=== PATIENT | male | born 1960 | race Caucasian/White ===

== ENCOUNTER 2019-12-27 11:55 | Outpatient (CLI) | payer BC, SELFPAY ==
[2019-12-27 12:09] LABS: Basophils Absolute Auto 0.03 K/mm3 (0.00-0.10); Basophils Percent Auto 0.4 % (0.0-1.0); Hematocrit 39.4 % (40.0-54.0); Hemoglobin 13.7 g/dL (14.0-18.0); Immature Granulocyte Absolute 0.03 K/mm3 (0.00-0.00); Immature Granulocyte Percent A 0.4 % (0.0-0.0); Lymphocytes Absolute Auto 0.87 K/mm3 (1.10-4.50); Lymphocytes Percent Auto 12.8 % (18.0-42.0); Mean Corpuscular HGB Conc 34.8 g/dL (32.0-36.0); Mean Corpuscular Hemoglobin 35.7 pg (27.0-31.0); Mean Corpuscular Volume 102.6 fL (78.0-102.0); Mean Platelet Volume 9.1 fl (8.7-11.0); Monocytes Absolute Auto 0.73 K/mm3 (0.10-0.90); Monocytes Percent Auto 10.8 % (2.0-11.0); Neutrophils Absolute Auto 5.1 K/mm3 (1.7-7.2); Neutrophils Percent Auto 75.6 % (50.0-70.0); Platelet Count Result 203 K/mm3 (150-420); Red Blood Count 3.84 M/mm3 (4.70-6.10); Red Cell Distribution Width 12.6 % (11.6-14.4); White Blood Count 6.8 K/mm3 (4.8-10.8)
[2019-12-27 13:32] LABS: Alanine Aminotransferase 46 U/L (16-63); Albumin Level 3.9 g/dL (3.4-5.0); Alkaline Phosphatase 82 U/L (46-116); Anion Gap 9 mmol/L (8-16); Aspartate Amino Transferase 32 U/L (15-37); Bilirubin,Total 0.5 mg/dL (0.00-1.00); Blood Urea Nitrogen 10 mg/dL (7-18); Calcium 9.1 mg/dL (8.5-10.1); Carbon Dioxide 30 mmol/L (21-32); Chloride 95 mmol/L (98-108); Cholesterol 218 mg/dL (0-200); Estimated Glomerular Filt Rate > 60; Glucose 106 mg/dL (70-99); HDL Direct 73 mg/dL (40-60); LDL Cholesterol Calculated 133 mg/dL (<130); Magnesium 1.7 mg/dL (1.8-2.4); Osmolality Calculated 277 mOsm/kg (285-295); Potassium 3.8 mmol/L (3.5-5.1); Sodium 134 mmol/L (136-145); Thyroid Stimulating Hormone 0.95 uIU/mL (0.36-3.74); Total Protein 7.6 g/dL (6.4-8.2); Triglycerides 58 mg/dL (0-150); Vitamin B12 358 pg/mL (193-986)
[2019-12-29 11:14] LABS: Vitamin D 25 Hydroxy 21 ng/mL (30-100)
== END 2019-12-27 11:56 | disposition home or self-care (01) ==
LOC: CHSLAB 12:00
PROVIDERS: PCP Nurse Practitioner Family; Visit Provider Nurse Practitioner Family
DX: Z00.00 Encounter for general adult medical examination without abnormal findings (principal); I10 Essential (primary) hypertension; E78.5 Hyperlipidemia, unspecified; R42 Dizziness and giddiness; Z79.899 Other long term (current) drug therapy
CPT/HCPCS: 36415; 80053; 80061; 82306; 82607; 83735; 84443; 85025

== ENCOUNTER 2020-02-08 11:06 | Outpatient (CLI) | payer BC, SELFPAY ==
--- NOTE | 2020-02-08 11:08 | ECG_ITS ---
Measurements Intervals [place] Rate: 104 P: 74 [place]: 184 QRS: 85 QRSD: 104 T: 63 QT: 317 QTc: 419 Interpretive Statements SINUS TACHYCARDIA POSSIBLE RIGHT ATRIAL ENLARGEMENT DELAYED PRECORDIAL R/S TRANSITION MINIMAL Q WAVES- INFERIOR LEADS BORDERLINE ECG Electronically Signed On 02-08-2020 12:07:32 CDT by Nelson Caceres D.O.
== END 2020-02-08 11:07 | disposition home or self-care (01) ==
PROVIDERS: PCP Nurse Practitioner Family; Visit Provider Nurse Practitioner Family
DX: R00.0 Tachycardia, unspecified (principal)
CPT/HCPCS: 93005

== ENCOUNTER 2020-02-21 13:12 | Outpatient (CLI) | payer BC, SELFPAY ==
--- NOTE | 2020-02-21 13:38 | ECHO_ITS ---
Patient Info Name: Brant Brarett Age: 59 years : 1960 Gender: Male Ht: 69 in Wt: 162 lbs BSA: 1.90 m2 HR: 91 bpm BP: 103 / 65 mmHg Technical Quality: Good Exam Date: 02/21/2020 1:40 PM Exam Location: [facility] Patient Status: Outpatient Admit Date: 02/21/2020 Staff Ordering Physician: Elizabeth Martinez NP Service Transformer Repair Supervisor: Frantz Yuan RDCS, RT Attending Provider: Elizabeth Martinez NP Referring Physician: Juan CERVANTES; Exam Type: CA echo doppler color flow Study Info Indications R94.31 - Abnormal electrocardiogram ECG EKG Complete two-dimensional, color flow and Doppler transthoracic echocardiogram is performed. Summary 1. Complete two-dimensional, color flow and Doppler transthoracic echocardiogram is performed. 2. Left ventricular chamber dimension is normal. 3. Left ventricular systolic function is normal, estimated at 60-65%. 4. There is moderately increased left ventricular wall thickness. 5. The left ventricular diastolic function is grade I diastolic dysfunction. 6. E/e' 6 is not elevated. 7. Global longitudinal strain is abnormal at -13.5%. 8. There is trace tricuspid valve regurgitation. 9. No pulmonary hypertension, estimated pulmonary arterial systolic pressure is 25 mmHg. 10. The aortic root size at the sinus of Valsalva is borderline dilated at 4.0 cm.. Left Ventricle E/e' 6 is not elevated. Global longitudinal strain is abnormal at -13.5%. Left ventricular chamber dimension is normal. Left ventricular systolic function is normal, estimated at 60-65%. There is moderately increased left ventricular wall thickness. The left ventricular diastolic function is grade I diastolic dysfunction. Right Ventricle Right ventricular systolic function is normal with TAPSE at 1.9 cm.. Right ventricular chamber dimension is normal. Left Atria Left atrial chamber dimension is normal. Right Atria Right atrial chamber dimension is normal. Aortic Valve The aortic valve is trileaflet. There is no aortic valve stenosis. There is no aortic valve regurgitation. Pulmonic Valve There is no pulmonic regurgitation. Mitral Valve There is no mitral valve stenosis. There is no mitral valve regurgitation. Tricuspid Valve There is trace tricuspid valve regurgitation. No pulmonary hypertension, estimated pulmonary arterial systolic pressure is 25 mmHg. Pericardium/Pleural There is no pericardial effusion. Inferior Vena Cava Normal inferior vena cava with >50% collapse upon inspiration consistent with normal right atrial pressure, 5 mmHg. Aorta The aortic root size at the sinus of Valsalva is borderline dilated at 4.0 cm.. Left Ventricular Outflow Tract Name Value Normal LVOT 2D LVOT Diameter 2.3 cm LVOT Doppler LVOT Peak Velocity 74 cm/s LVOT Peak Gradient 2 mmHg LVOT Mean Gradient 1 mmHg LVOT VTI 14 cm LVOT VTI/AV VTI Ratio 0.8 LVOT Stroke Volume 57 ml Mitral Valve
== END 2020-02-21 13:13 | disposition home or self-care (01) ==
LOC: CHSIMG 13:15
PROVIDERS: PCP Nurse Practitioner Family; Visit Provider Nurse Practitioner Family
DX: R94.31 Abnormal electrocardiogram [ECG] [EKG] (principal)
CPT/HCPCS: 93306

== ENCOUNTER 2020-04-05 08:15 | Outpatient (CLI) | payer BC, SELFPAY ==
[2020-04-12 11:16] LABS: Vitamin D 25 Hydroxy 24 ng/mL (30-100)
== END 2020-04-05 08:16 | disposition home or self-care (01) ==
LOC: CHSLAB 08:16
PROVIDERS: PCP Nurse Practitioner Family; Visit Provider Nurse Practitioner Family
DX: Z79.899 Other long term (current) drug therapy (principal)
CPT/HCPCS: 36415; 82306

== ENCOUNTER 2020-04-25 08:48 | Outpatient (CLI) | payer BC, SELFPAY ==
--- NOTE | 2020-05-01 10:37 | WPDHOLTEREM ---
Holter/Event Monitor Holter/Event Monitor Date of procedure: 04/25/20 Procedure Type: 48 hour holter monitor Indications: Dizziness Conclusion: 1. 48 hour holter monitor on 04/25/20. 2. Underlying rhythm is sinus rhythm. HR range 69-132; average HR 87 bpm. 3. There are 13 premature supraventricular complexes. No supraventricular tachycardia. 4. There are 50 premature ventricular complexes. No ventricular tachycardia. 5. No sinoatrial or atrioventricular blocks. No significant pauses greater than 2 seconds. 6. Patient reports symptoms of lightheadedness, nausea/vomiting, headache which demonstrate sinus rhythm, HR range 76-100 bpm.
== END 2020-04-25 08:49 | disposition home or self-care (01) ==
PROVIDERS: PCP Nurse Practitioner Family; Visit Provider Nurse Practitioner Family
DX: R42 Dizziness and giddiness (principal)
CPT/HCPCS: 93225; 93226

== ENCOUNTER 2021-05-10 10:15 | Outpatient (CLI) | payer BC, SELFPAY ==
[2021-05-10 10:58] LABS: Hematocrit 42.8 % (40.0-54.0); Hemoglobin 15.9 g/dL (14.0-18.0); Immature Platelet Fraction Pct 24.2 % (1.0-7.0); Mean Corpuscular HGB Conc 37.1 g/dL (32.0-36.0); Mean Corpuscular Hemoglobin 37.1 pg (27.0-31.0); Platelet Count Result 80 K/mm3 (150-420); Red Blood Count 4.28 M/mm3 (4.70-6.10); Red Cell Distribution Width 12.8 % (11.6-14.4); White Blood Count 5.5 K/mm3 (4.8-10.8)
[2021-05-10 11:34] LABS: Band Neutrophils Percent 0 % (0-6); Basophils Percent Manual 0 % (0-1); Eosinophils Absolute Manual 0.05 K/mm3 (0.02-0.5); Eosinophils Percent Manual 1 % (1-6); Lymphocytes Absolute Manual 1.21 K/mm3 (1.1-4.5); Lymphocytes Percent Manual 22 % (18-44); Monocytes Absolute Manual 0.55 K/mm3 (0.1-0.90); Monocytes Percent Manual 10 % (3-9); Neutrophils Absolute Manual 3.68 K/mm3 (1.3-6.7); Neutrophils Percent Manual 67 % (46-73); Total Cells Counted 100
[2021-05-10 11:35] LABS: Alanine Aminotransferase 72 U/L (16-63); Albumin Level 3.2 g/dL (3.4-5.0); Alkaline Phosphatase 138 U/L (46-116); Anion Gap 13 mmol/L (8-16); Aspartate Amino Transferase 109 U/L (15-37); Bilirubin,Total 3.1 mg/dL (0.00-1.00); Blood Urea Nitrogen 8 mg/dL (7-18); Calcium 8.9 mg/dL (8.5-10.1); Carbon Dioxide 32 mmol/L (21-32); Chloride 82 mmol/L (98-108); Cholesterol 209 mg/dL (0-200); Estimated Glomerular Filt Rate > 60; Glucose 165 mg/dL (70-99); HDL Direct 24 mg/dL (40-60); LDL Cholesterol Calculated 148 mg/dL (<130); Large Platelets Present; Osmolality Calculated 266 mOsm/kg (285-295); Platelet Estimate Decreased (Adequate); Sodium 127 mmol/L (136-145); Total Protein 7.1 g/dL (6.4-8.2); Triglycerides 183 mg/dL (0-150)
[2021-05-10 11:46] LABS: Potassium 2.4 mmol/L (3.5-5.1)
[2021-05-14 02:20] LABS: Vitamin D 25 Hydroxy 14 ng/mL (30-100)
== END 2021-05-10 10:16 | disposition home or self-care (01) ==
LOC: CHSLAB 10:18
PROVIDERS: PCP Nurse Practitioner Family; Visit Provider Nurse Practitioner Family
DX: E55.9 Vitamin D deficiency, unspecified (principal); I10 Essential (primary) hypertension; E78.5 Hyperlipidemia, unspecified
CPT/HCPCS: 36415; 80053; 80061; 82306; 85025; 85055

== ENCOUNTER 2021-05-10 14:44 | Inpatient (IN) | payer BC, SELFPAY ==
[2021-05-10] VITALS (8 sets, daily range): BP systolic 133–149; BP diastolic 78–89; PULSE 62–69; RESP 16–28; TEMP 35.6–36.9; O2SAT 94–99; BMI 21.9
--- NOTE | ~2021-05-10 | MR_ITS ---
EXAMINATION: MR brain/brain stem wo con DATE: 05/15/2021 12:26 INDICATION: Altered mental status. Stroke. TECHNIQUE: Magnetic resonance imaging (MRI) of the brain and brainstem was performed without intraven ous contrast. Sequences included sagittal and axial T1-weighted FSE, axial diffusion-weighted FS EPI, axial T2*-weighted GRE, axial T2-weighted FLAIR Propeller, and axial T2-weighted Propeller. Apparent diffusion coefficient (ADC) maps were created. COMPARISON: Head CT 05/10/2021 FINDINGS: There is an old infarct in right frontoparietal region. There is no intracranial hemorrhage , acute infarction, or abnormal intracranial mass lesion. There are scattered areas of nonspecific in creased T2-weighted signal intensity in the cerebral white matter, which is within normal limits for the patient's age. The ventricles are normal in size. Right maxillary sinus is small and nearly compl etely opacified. The orbits are normal. There is a trace left mastoid effusion. IMPRESSION: 1. 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 2. Chronic right maxillary sinusitis. Reviewed, dictated and finalized at location B. LOPMENT COORDINATOR
--- NOTE | ~2021-05-10 | MR_ITS ---
EXAMINATION: MRA brain wo con DATE: 05/12/2021 12:22 INDICATION: Cortical infarct in right frontoparietal region. Seizure. TECHNIQUE: Magnetic resonance angiography (MRA) of the brain was performed without intravenous contra st with T1-weighted SPGR by the 3D [id number] technique. Maximum intensity projection 3D-reconstr uctions were obtained. COMPARISON: Head CT 05/10/2021 FINDINGS: Right vertebral artery is dominant. There is no significant stenosis of basilar artery or the posteri or cerebral arteries. There is no significant stenosis of the intracranial internal carotid arteries or anterior or middle cerebral arteries. Anterior communicating artery is normal. Posterior communica ting arteries are not identified. There is no aneurysm. IMPRESSION: 1. No aneurysm or significant intracranial arterial stenosis. Reviewed, dictated and finalized at location A. WEB DEVELOPER
--- NOTE | ~2021-05-10 | XR_ITS ---
EXAMINATION: XR chest 2V EXAM DATE: 05/10/2021 16:09 INDICATION: shortness of breath and weakness. TECHNIQUE: Frontal and lateral projections of the chest obtained and reviewed. There is no prior kyleigh dy for comparison. FINDINGS: The lungs are clear. There are no pleural effusions. The cardiomediastinal silhouette is within normal limits. There is no pneumothorax suspected. The bones and soft tissues are unremarkab le. IMPRESSION: No acute cardiopulmonary findings. Reviewed, dictated and finalized at location A. RINARY MILK SPECIALIST
--- NOTE | ~2021-05-10 | CT_ITS ---
EXAMINATION: CT brain wo con DATE: 05/10/2021 16:09 INDICATION: New onset multiple seizures within the last 2 days. TECHNIQUE: Computed tomography (CT) of the head was performed without intravenous contrast. Sagittal and coronal reconstructions were performed. The mA was adjusted according to patient size. Iterative reconstruction technique was employed. The dose-length product was 605.33 mGy-cm. COMPARISON: None FINDINGS: Small region of cortical encephalomalacia consistent with 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 No acute intracranial hemorrhage, acute infarction or abnormal extra axial fluid collection. Ventricles are normal and symmetric. No mass/mass effect. Complete opacification of the visualized p ortion of the right maxillary sinus with thickened sclerotic rios suggesting chronic sinusitis. Asa tional mucosal thickening in a few of the bilateral ethmoid sinuses. The orbits and mastoid air cells are normal. Mild atherosclerotic calcification at the bilateral carotid siphons. IMPRESSION: 1. No acute intracranial process. 2. 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 3. Chronic right maxillary sinusitis. Reviewed, dictated and finalized at location B. GED CARE PROVIDER
--- NOTE | 2021-05-10 14:57 | ECG_ITS ---
Measurements Intervals [place] Rate: 66 P: 66 [place]: 170 QRS: 79 QRSD: 119 T: 77 QT: 450 QTc: 474 Interpretive Statements SINUS RHYTHM INTRAVENTRICULAR CONDUCTION DELAY DELAYED PRECORDIAL R/S TRANSITION BORDERLINE ST-T WAVE ABNORMALITY- HIGH LATERAL LEADS BASELINE ARTIFACT- I, II, III, AVR, AVL, AVF, V1-V6 BORDERLINE ECG Electronically Signed On 05-10-2021 15:28:21 SKEIN WINDER by Nelson Caceres D.O.
[2021-05-10] MEDS: IPRATROPIUM 0.5 MG/ALBUTEROL SULFATE 2.5 MG AMPUL.NEB 3 ML INHALATION (15:21)
[2021-05-10 15:33] LABS: Basophils Absolute Auto 0.03 K/mm3 (0.00-0.10); Basophils Percent Auto 0.4 % (0.0-1.0); Eosinophils Absolute Auto 0.01 K/mm3 (0.02-0.50); Eosinophils Percent Auto 0.1 % (1.0-6.0); Hemoglobin 14.4 g/dL (14.0-18.0); Immature Granulocyte Absolute 0.05 K/mm3 (0.00-0.00); Immature Granulocyte Percent A 0.6 % (0.0-0.0); Immature Platelet Fraction Pct 23.2 % (1.0-7.0); Lymphocytes Absolute Auto 1.36 K/mm3 (1.10-4.50); Lymphocytes Percent Auto 17.4 % (18.0-42.0); Mean Corpuscular HGB Conc 36.9 g/dL (32.0-36.0); Mean Corpuscular Hemoglobin 37.2 pg (27.0-31.0); Mean Corpuscular Volume 100.8 fL (78.0-102.0); Monocytes Absolute Auto 0.83 K/mm3 (0.10-0.90); Monocytes Percent Auto 10.6 % (2.0-11.0); Neutrophils Absolute Auto 5.5 K/mm3 (1.7-7.2); Neutrophils Percent Auto 70.9 % (50.0-70.0); Nucleated Red Blood Cells Absolute Auto 0.03 K/mm3 (0.00-0.00); Nucleated Red Blood Cells Perc 0.4 % (0-0.0); Platelet Count Result 74 K/mm3 (150-420); Red Blood Count 3.87 M/mm3 (4.70-6.10); Red Cell Distribution Width 12.8 % (11.6-14.4); White Blood Count 7.8 K/mm3 (4.8-10.8)
[2021-05-10] MEDS: KCL 20 MEQ/SW 100 ML 100 ML 50 MEQ IVPB (15:40)
[2021-05-10] MEDS: methylPREDNISolone SOD SUCC 125 MG VIAL IV PUSH (15:41)
[2021-05-10] MEDS: SODIUM CHLORIDE 0.9% IV 1,000 ML 999 ML IV CONT (15:41)
[2021-05-10 15:46] LABS: Magnesium 1.4 mg/dL (1.8-2.4)
[2021-05-10 15:54] LABS: Lactic Acid Reflex 2.9 mmol/L (0.4-2.0)
--- NOTE | 2021-05-10 16:25 | ED.GENADULT ---
HPI - General Adult General Chief complaint: Recheck/Abnormal Lab/Rx Stated complaint: bad labs Source: patient and family Mode of arrival: ambulatory Limitations: no limitations History of Present Illness HPI narrative: This is a 60 year gentleman sent to the ER by his primary care, with labs that drawn earlier today showing a sodium level of 127 with a potassium of 2.4. The patient currently is not exhibiting any symptoms of chest pain or shortness of breath there is no abdominal pain no nausea vomiting no fever chills. The patient has a tobacco history and has a history of hypertension hyperlipidemia and depression. According to the patient and his had an episode of seizure activity that lasted about a minute yesterday afternoon and did lose bowel and bladder function did not bite his tongue currently there is no headaches no blurry vision no neurological deficits. Onset (ago): day(s) Related Data Home Medications Medication Instructions Recorded Confirmed atorvastatin 40 mg tablet 40 mg PO DAILY 12/27/19 11/15/20 sertraline 50 mg tablet 50 mg PO DAILY 09/14/20 11/15/20 Allergies Allergy/AdvReac Type Severity Reaction Status Date / Time Penicillins Allergy Intermediate Rash Verified 01/31/21 14:11 Review of Systems Review of Systems: All systems reviewed & are unremarkable except as noted in HPI and below PMFSH Past Medical History Medical History (Updated 05/10/21 @ 16:31 by Chepe Seaman MD) Anxiety HTN (hypertension) Hyperlipidemia Nicotine dependence, cigarettes, uncomplicated Surgical History Surgical History Hx of tonsillectomy Age 11 Family History Family History Father Hypertension Social History Social History Smoking packs per day: 0.5 Smoking cigarettes per day: 10.0 Years smoked: 20 Smoking pack-years: 10.00 Smoking status: Never smoker Tobacco type: cigarettes Alcohol intake: never Substance use: never Exam Const: General: healthy appearing, no acute distress and alert Orientation/consciousness: patient oriented x3 HENMT: Head: normal to inspection Eyes: Conjunctivae: conjunctivae normal Pupils: Equal, round and reactive pupils present Direct Ophthalmoscopy: no photophobia Neck: Neck: normal visual inspection, no lymphadenopathy and no meningeal signs Chest: Chest palpation & inspection: normal inspection of the chest Resp: Effort & Inspection: normal respiratory effort Auscultation: clear to auscultation bilaterally Cardio: Rate: regular rate Rhythm: regular rhythm GI: GI Palp: Yes Soft to palpation Percussion: Yes normal to percussion : Testes: Testes normal Urinary Catheter: Urinary Catheter: patent and draining Back/Spine/Pelvis: Back: no CVA tenderness Skin: General skin exam: normal color Rashes: no rashes Neuro: General: patient oriented x3, moves all extremities, no meningeal signs, no focal motor deficits and CN's II-XI intact bilaterally Extrem: General: normal to inspection and no pedal edema Psych: Appearance: grossly normal Mental Status: mental status grossly normal Affect: normal affect Course Course Emergency Course: CT scan chest x-ray reviewed with patient and family, the patient had a low potassium of 2.4 and a sodium of 127, magnesium level was 1.4, patient received potassium rider along with IV fluids. Vital Signs Vital signs: Vital Signs Temperature 35.6 C L 05/10/21 15:05 Pulse Rate 65 05/10/21 15:05 Respiratory Rate 16 05/10/21 15:05 Blood Pressure 133/84 05/10/21 15:05 Pulse Oximetry 98 05/10/21 15:05 Temperature 35.6 C L 05/10/21 15:05 Pulse Rate 62 05/10/21 15:38 Respiratory Rate 28 H 05/10/21 15:38 Blood Pressure 133/84 05/10/21 15:05 Pulse Oximetry 99 05/10/21 15:38 Medical Decision Maria Elena
--- NOTE | 2021-05-10 18:11 | PM.IMHP ---
H&P: HPI History of Present Illness Date/Time: 05/10/21 18:11 Brant Barrett is a 60 year old male who is admitted under Observation for Electrolyte Imbalance: Na 127, K 2.4, Cl 82, Mag 1.4, Lactic Acidosis 2.9, N/V/D, and Seizure Activity. Pt states he has been having N/V/D off and on for a few months with it becoming worse over last 2-3 days. He admits to some leg/foot cramping, and tremors. The tremors have been off and on but increasing over the last 6 months. Pt describes them as intention tremors. The seizure activity is described as 3 episodes of hallucinations where he thought he was talking to someone and then his gets him to respond and he realizes that what he had just experienced was not real. They were of short duration maybe 1-2 minutes but he does not recall them but was told what had happened by his . Pt denies any loss of bowel or bladder function, no CP, SOB, fever, or chills. Chief Complaint: N/V/D, Seizure Review of Systems Review of Systems: All systems reviewed & are unremarkable except as noted in HPI and below PMFSH Past Medical History Medical History Anxiety HTN (hypertension) Hyperlipidemia Nicotine dependence, cigarettes, uncomplicated Surgical History Surgical History Hx of tonsillectomy Age 11 Family History Family History Father Hypertension Social History Social History Smoking packs per day: 0.5 Smoking cigarettes per day: 10.0 Years smoked: 20 Smoking pack-years: 10.00 Smoking status: Current every day smoker Tobacco type: cigarettes Second hand tobacco smoke exposure: Yes Alcohol intake: current Drinks per week: 3 Substance use: never Substance use type: does not use Spiritual care concerns: No Meds Home Medications and Allergies Home Medications Medication Instructions Recorded Confirmed Type atorvastatin 40 mg tablet 40 mg PO DAILY 12/27/19 11/15/20 History cholecalciferol (vitamin D3) 1,250 1,250 mcg PO WEEKLY #8 cap 04/24/20 11/15/20 Rx mcg (50,000 unit) capsule azelastine 137 mcg (0.1 %) nasal 1 spray INTRANASAL Q12H #30 ml 05/24/20 11/15/20 Rx spray aerosol meclizine 25 mg tablet 25 mg PO BID PRN #30 tablet 07/20/20 11/15/20 Rx fluticasone propionate 50 1 spray NASAL DAILY PRN #9.9 ml 07/31/20 11/15/20 Rx mcg/actuation nasal spray,suspension sertraline 50 mg tablet 50 mg PO DAILY 09/14/20 11/15/20 History hydrocortisone acetate 25 mg 25 mg RECTAL BID PRN #12 ea 11/15/20 11/15/20 Rx rectal suppository propranolol 40 mg tablet See Rx Instructions .ROUTE 01/03/21 Rx .COMPLEX #60 tablet lisinopril 10 mg tablet See Rx Instructions .ROUTE 03/06/21 Rx .COMPLEX #90 tablet potassium chloride 20 mEq 20 meq PO TID #30 tablet 05/10/21 Rx tablet,extended release sodium chloride 1 gram tablet 1,000 mg PO BID #14 tablet 05/10/21 Rx Allergies Allergy/AdvReac Type Severity Reaction Status Date / Time Penicillins Allergy Intermediate Rash Verified 01/31/21 14:11 Vital Signs Vital Signs - 24 hr 05/10/21 15:05 05/10/21 15:20 05/10/21 15:38 Temperature 96.1 F L Pulse Rate 65 62 62 Respiratory Rate 16 28 H 28 H Blood Pressure 133/84 Pulse Oximetry 98 99 99 05/10/21 16:47 Temperature 98.4 F Pulse Rate 65 Respiratory Rate 18 Blood Pressure 149/85 H Pulse Oximetry 94 Exam Const: General: cooperative, no acute distress, well developed, alert, awake, Physically active and tired appearing Nutritional Appearance: average body habitus HENMT: Head: normal to inspection, normocephalic and atraumatic Ears: hearing grossly normal bilaterally Face and sinus: normal facial exam Eyes: Alignment and Position: alignment normal EOM: EOM abnormal and Nystagmus present Direct Ophth
[2021-05-10 18:28] LABS: Reflex Lactic Acid Yes or No Add Lactic
--- NOTE | 2021-05-10 18:43 | ADMGEN ---
This patient, Brant Barrett, was admitted to 2nd Floor Room 207-1. Patient/family oriented to hospital policies and general routines including ID bracelet, bed and alarms, visiting hours, pain management, procedures, bathroom and other care routines, personal items, smoking policy, room service/diet, and visiting hours. Information on how to activate the Rapid Response Team has been discussed. pt has athletic pants in bag, jeans, shoes, socks, shirt, glasses Patient/Family are encouraged to report perceived risks to care and to ask questions if they do not understand what they are told or what they should do.
[2021-05-10] MEDS: MAGNESIUM SULF 2 GM/WATER 50ML 2 GM/50 ML BAG IVPB (19:17)
[2021-05-10] MEDS: SODIUM CHLORIDE 0.9% IV 1,000 ML 100 ML IV CONT (19:18)
[2021-05-10] MEDS: POTASSIUM CHLORIDE 20 MEQ TABLET PO (19:18)
[2021-05-10] MEDS: MELATONIN 5 MG TABLET 10 MG PO (21:15)
[2021-05-10] MEDS: methylPREDNISolone SOD SUCC 40 MG VIAL IV PUSH (21:15)
[2021-05-10] MEDS: chlordiazePOXIDE (*CRX) 10 MG CAPSULE PO (21:16)
[2021-05-11] VITALS (15 sets, daily range): BP systolic 128–161; BP diastolic 74–106; PULSE 59–88; RESP 18–22; TEMP 36.4–36.7; O2SAT 96–100
--- NOTE | 2021-05-11 02:31 | PC.NURSE ---
Patient sleeping at this time. Bed rails up x 4. Bed exit alarm on. Bed in low position for safety.
[2021-05-11] MEDS: methylPREDNISolone SOD SUCC 40 MG VIAL IV PUSH ×4 (04:06→21:29)
--- NOTE | 2021-05-11 05:07 | PC.NURSE ---
Patient sleeping comfortably. Requires frequent reminders not to get up on his own, and reminders not to bend his arm for long periods. Bed in low position for safety. Denies needs at this time.
[2021-05-11 05:23] LABS: Basophils Absolute Auto 0.01 K/mm3 (0.00-0.10); Basophils Percent Auto 0.2 % (0.0-1.0); Hemoglobin 13.6 g/dL (14.0-18.0); Immature Granulocyte Absolute 0.02 K/mm3 (0.00-0.00); Immature Granulocyte Percent A 0.5 % (0.0-0.0); Immature Platelet Fraction Pct 20.6 % (1.0-7.0); Mean Corpuscular HGB Conc 35.8 g/dL (32.0-36.0); Mean Corpuscular Hemoglobin 36.8 pg (27.0-31.0); Mean Corpuscular Volume 102.7 fL (78.0-102.0); Mean Platelet Volume 12.9 fl (8.7-11.0); Monocytes Absolute Auto 0.54 K/mm3 (0.10-0.90); Monocytes Percent Auto 13.1 % (2.0-11.0); Neutrophils Absolute Auto 2.9 K/mm3 (1.7-7.2); Neutrophils Percent Auto 69.2 % (50.0-70.0); Nucleated Red Blood Cells Absolute Auto 0.02 K/mm3 (0.00-0.00); Nucleated Red Blood Cells Perc 0.5 % (0-0.0); Platelet Count Result 70 K/mm3 (150-420); Red Cell Distribution Width 13.1 % (11.6-14.4); White Blood Count 4.1 K/mm3 (4.8-10.8)
[2021-05-11 05:41] LABS: Alanine Aminotransferase 81 U/L (16-63); Albumin Level 2.7 g/dL (3.4-5.0); Alkaline Phosphatase 109 U/L (46-116); Anion Gap 10 mmol/L (8-16); Aspartate Amino Transferase 155 U/L (15-37); Bilirubin,Total 2.4 mg/dL (0.00-1.00); Blood Urea Nitrogen 7 mg/dL (7-18); Carbon Dioxide 33 mmol/L (21-32); Chloride 92 mmol/L (98-108); Estimated CRCL calculation 89 ml/min; Estimated Glomerular Filt Rate > 60; Glucose 159 mg/dL (70-99); Magnesium 1.9 mg/dL (1.8-2.4); Osmolality Calculated 281 mOsm/kg (285-295); Potassium 2.6 mmol/L (3.5-5.1); Sodium 135 mmol/L (136-145); Total Protein 6.5 g/dL (6.4-8.2)
[2021-05-11] MEDS: SODIUM CHLORIDE 0.9% IV 1,000 ML 100 ML IV CONT ×2 (06:09→16:27)
--- NOTE | 2021-05-11 06:14 | PC.NURSE ---
Patient resting in bed. New bag of IV fluids hanging. Denies needs. Sat up on side of bed to use urinal. Bed rails up x 4. Bed exit alarm on. Bed in low position for safety.
[2021-05-11] MEDS: THIAMINE HCL INJ 100 MG, FOLIC ACID 1 MG, MULTIVITAMINS-12 INJ 10 ML, MAGNESIUM SULFATE... IV CONT (09:16)
[2021-05-11] MEDS: ENOXAPARIN 40 MG/0.4 ML SYRINGE SUB-Q (09:18)
[2021-05-11] MEDS: chlordiazePOXIDE (*CRX) 10 MG CAPSULE PO ×2 (09:18→21:29)
[2021-05-11] MEDS: CLOPIDOGREL BISULFATE 75 MG TABLET PO (09:18)
[2021-05-11] MEDS: NICOTINE (*PBKC) 21 MG PATCH 1 PATCH TRANSDERM (09:18)
[2021-05-11] MEDS: POTASSIUM CHLORIDE 20 MEQ TABLET PO ×2 (09:18→16:28)
[2021-05-11] MEDS: POTASSIUM CHLORIDE 20 MEQ TABLET 40 MEQ PO (10:34)
[2021-05-11] MEDS: KCL 20 MEQ/SW 100 ML 100 ML 50 MEQ IVPB (10:37)
[2021-05-11] MEDS: lisinopriL 10 MG TABLET PO (13:48)
[2021-05-11] MEDS: SERTRALINE HCL 50 MG TABLET PO (13:48)
[2021-05-11] MEDS: PROPRANOLOL HCL 20 MG TABLET PO ×2 (13:48→21:28)
[2021-05-11 14:25] LABS: Lactic Acid Reflex 2.8 mmol/L (0.4-2.0)
--- NOTE | 2021-05-11 14:31 | PM.IMPN ---
Progress Note: A&P Assessment and Plan (1) Alcohol withdrawal: Code(s): F10.239 - Alcohol dependence with withdrawal, unspecified Status: Acute Assessment and Plan: Started on CIWA with Ativan Q4R PRN, Tremors improved today, Pt is not requesting AMA, Pt is compliant (2) Thrombocytopenia: Code(s): D69.6 - Thrombocytopenia, unspecified Status: Acute Assessment and Plan: Plt 80, 74, 70, Pt is on Eliquis, Monitor to maintain > 50 for Anticoagulation and < 20 for transfusion. (3) Acute hyponatremia: Code(s): E87.1 - Hypo-osmolality and hyponatremia Status: Acute Assessment and Plan: IVF as noted, monitor BMP (4) Acute hypokalemia: Code(s): E87.6 - Hypokalemia Status: Acute Assessment and Plan: K rider in ER, Potassium 20 BID, monitor BMP, Mag also low, (5) Hypomagnesemia: Code(s): E83.42 - Hypomagnesemia Status: Acute Assessment and Plan: Mag rider in ER will recheck in AM (6) Seizure: Code(s): R56.9 - Unspecified convulsions Status: Acute Assessment and Plan: As noted in HPI, will monitor for seizures, seizure precautions, electrolyte imbalance, new onset, no changes in medications or OTC supplements, see Head CT report: FINDINGS: Small region of cortical encephalomalacia consistent with 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 No acute intracranial hemorrhage, acute infarction or abnormal extra axial fluid collection. Ventricles are normal and symmetric. No mass/mass effect. Complete opacification of the visualized portion of the right maxillary sinus with thickened sclerotic rios suggesting chronic sinusitis. Additional mucosal thickening in a few of the bilateral ethmoid sinuses. The orbits and mastoid air cells are normal. Mild atherosclerotic calcification at the bilateral carotid siphons. IMPRESSION: 1. No acute intracranial process. 2. 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 3. Chronic right maxillary sinusitis. MRI Brain ordered: will be available on Friday05/12/2021. (7) Vomiting and diarrhea: Code(s): R11.10 - Vomiting, unspecified; R19.7 - Diarrhea, unspecified Status: Acute Assessment and Plan: IVF 1 L bolus in ER with 100 ml/h continuation on floor, likely cause for electrolyte imbalance. (8) HTN (hypertension): Code(s): I10 - Essential (primary) hypertension Status: Acute Assessment and Plan: Will restart home medications in AM when a verified list is available otherwise monitor, make adjustments as needed. Time Spent With Patient Time with patient: 15 - 25 minutes Subjective Date/time seen: 05/11/21 14:31 Pt in bed and a little restless. He thought he was at other peoples home and that his was in the hospital at some point. His tremors have decreased a little. He is difficult to calm at times for the staff. Will adjust his CIWA medications. Pt denies any CP, breathing difficulties, abdominal pain, or any other issues. Review of Systems Review of Systems: All systems reviewed & are unremarkable except as noted in HPI and below Exam Const: General: comfortable, well developed, alert, awake, Physically active, confusion and intoxicated appearing Nutritional Appearance: average body habitus Resp: Effort & Inspection: normal respiratory effort Auscultation: clear to auscultation bilaterally Cardio: Rate: regular rate Heart sounds: S1 normal heart sound present and S2 normal heart sound present GI: GI Palp: Yes Soft to palpation, No Tenderness to palpation present (GI) and No Guarding due to palpation present (GI) Auscultation: normal bowel sounds Skin: General skin exam: normal color and dry skin Neuro: General: oriented to person, moves all extremities and confusion Cranial nerves: Yes CN's II-XII intact bilaterally (grossly intact), Yes facial symmetry and Yes Normal hearing present Speech: Abnormal speech present s
[2021-05-11 17:09] LABS: Reflex Lactic Acid Yes or No Add Lactic
[2021-05-11 18:31] LABS: Lactic Acid 1.5 mmol/L (0.4-2.0)
--- NOTE | 2021-05-11 19:00 | PC.NURSE ---
Patient assisted to/from bedside commode with SBA. Patient confused, thinks he's @ home and doesn't understand why he can't go to the kitchen. Attempts to re-orient patient have failed. NS infusing to site in LFA without difficulty. Call light in reach.
--- NOTE | 2021-05-11 20:20 | PC.NURSE ---
Patient continuously getting up unassisted, setting bed alarm off, which gets him agitated. Patient thinks he's @ home and wants to go to his bedroom or to his kitchen and gets angry @ nurses when they try to re-orient him. Patient can't understand why the bed alarm sounds every time he starts to get up. Patient pulled 2 wires of telemetry off and story writer put them back on but patient wasn't happy about it.
[2021-05-11] MEDS: LORazepam INJ (*CRX) 2 MG/ML VIAL 0.5 MG IV PUSH (21:32)
[2021-05-11] MEDS: MELATONIN 5 MG TABLET 10 MG PO (21:33)
--- NOTE | 2021-05-11 21:35 | PC.NURSE ---
Patient continually getting up without assistance. Foreign Policy Officer entered room one of the times and patient was standing next to the bed with IV tubing stretched as far as it would go and patient was going to go use the bathroom. Foreign Policy Officer grabbed the bedside commode and pulled it closer for patient and patient refused to sit on commode, wanted to stand to urinate, which patient did, but some of the urine ended up on the floor instead of in the commode. Patient leaned to the right and fell onto the bed and laughed. Foreign Policy Officer explained again why patient had to have someone with him to get up and explained why bed alarm is being used, using his falling onto the bed as an example. Patient getting more and more agitated the more times he gets up and the bed alarm sounds. Patient will lie down and within a minute or two he's getting up again. Anuel Ayoub VP BUSINESS DEVELOPMENT stayed in patient's room talking to him to try to calm him while nurse got patient's medicines ready. Patient did take his po meds without trouble and patient was given PRN Ativan also.
[2021-05-11] MEDS: AZELASTINE HCL NASAL 0.1% 137 MCG/SPR 30 ML BTL 1 SPRAY NASAL (21:41)
--- NOTE | 2021-05-11 22:30 | PC.NURSE ---
Patient still continually getting up unassisted and setting off bed alarm to alert nurses, which in turn agitates patient. Patient wants to go home, thinks someone is in the steele that nurses don't want him to see and says that's why nurses won't let him go out there. Patient's gait remains unsteady when he stands. Patient will agree with nurses when he is told he is in [facility], but then patient will still want to go to his kitchen or bedroom. All attempts to re-orient patient fail. Patient still agitated after receiving the PRN Ativan. Behaviors continue.
--- NOTE | 2021-05-11 23:36 | PC.NURSE ---
Dr. Simpson notified of pt's agitated behavior; New orders received and noted.
[2021-05-11] MEDS: LORazepam INJ (*CRX) 2 MG/ML VIAL 1 MG IV PUSH (23:53)
[2021-05-12] VITALS (9 sets, daily range): BP systolic 137–170; BP diastolic 68–107; PULSE 60–90; RESP 18–20; TEMP 36.2–37; O2SAT 95–100
--- NOTE | 2021-05-12 01:00 | PC.NURSE ---
here, patient remains agitated, confused and uncooperative. Requires three nurses to return to bed after using BSC.
[2021-05-12] MEDS: SODIUM CHLORIDE 0.9% IV 1,000 ML 100 ML IV CONT ×3 (01:06→22:54)
--- NOTE | 2021-05-12 03:00 | PC.NURSE ---
Patient remains confused with periods of agitation, hallucinations(ie seeing paintings of daisies on rios, seeing small robot children and other people in room.) Melo, , in room, and patients having periods of calm, resting for less than 30 minutes, followed by agitation, requiring 2 nurses to prevent falls/injuries.
--- NOTE | 2021-05-12 04:15 | PC.NURSE ---
Dr. Simpson notified of pt's agitated behavior; New orders received and noted.
[2021-05-12] MEDS: methylPREDNISolone SOD SUCC 40 MG VIAL IV PUSH ×4 (04:20→21:48)
[2021-05-12] MEDS: HALOPERIDOL LACTATE 5 MG/ML VIAL 1 MG IM (04:25)
--- NOTE | 2021-05-12 04:30 | PC.NURSE ---
Continues to have periods of agitation, sleeping at intervals, at bedside.
--- NOTE | 2021-05-12 05:00 | PC.NURSE ---
Sleeping, no signs of distress, caregiver leaving for home. Bed alarm on.
[2021-05-12 05:26] LABS: Hematocrit 33.5 % (40.0-54.0); Hemoglobin 11.7 g/dL (14.0-18.0); Immature Platelet Fraction Pct 18.3 % (1.0-7.0); Mean Corpuscular HGB Conc 34.9 g/dL (32.0-36.0); Mean Corpuscular Hemoglobin 36.9 pg (27.0-31.0); Mean Corpuscular Volume 105.7 fL (78.0-102.0); Mean Platelet Volume 13.5 fl (8.7-11.0); Platelet Count Result 64 K/mm3 (150-420); Red Blood Count 3.17 M/mm3 (4.70-6.10); Red Cell Distribution Width 13.4 % (11.6-14.4); White Blood Count 6.2 K/mm3 (4.8-10.8)
[2021-05-12 05:47] LABS: Anion Gap 10 mmol/L (8-16); Blood Urea Nitrogen 7 mg/dL (7-18); Calcium 7.9 mg/dL (8.5-10.1); Carbon Dioxide 29 mmol/L (21-32); Chloride 97 mmol/L (98-108); Estimated CRCL calculation 88 ml/min; Estimated Glomerular Filt Rate > 60; Glucose 153 mg/dL (70-99); Osmolality Calculated 283 mOsm/kg (285-295); Potassium 2.6 mmol/L (3.5-5.1); Sodium 136 mmol/L (136-145)
[2021-05-12] MEDS: HALOPERIDOL LACTATE 5 MG/ML VIAL 2 MG IM (08:45)
[2021-05-12] MEDS: POTASSIUM CHLORIDE 20 MEQ TABLET 40 MEQ PO ×3 (09:08→17:52)
[2021-05-12] MEDS: CLOPIDOGREL BISULFATE 75 MG TABLET PO (09:08)
[2021-05-12] MEDS: ATORVASTATIN 40 MG TABLET PO (09:08)
[2021-05-12] MEDS: SERTRALINE HCL 50 MG TABLET PO (09:09)
[2021-05-12] MEDS: lisinopriL 10 MG TABLET PO (09:09)
[2021-05-12] MEDS: PROPRANOLOL HCL 20 MG TABLET PO ×2 (09:09→20:56)
[2021-05-12] MEDS: AZELASTINE HCL NASAL 0.1% 137 MCG/SPR 30 ML BTL 1 SPRAY NASAL ×2 (09:10→20:56)
[2021-05-12] MEDS: ERGOCALCIFEROL 50,000 UNIT CAPSULE 50000 UNITS PO (09:10)
[2021-05-12] MEDS: NICOTINE (*PBKC) 21 MG PATCH 1 PATCH TRANSDERM (09:12)
[2021-05-12] MEDS: chlordiazePOXIDE (*CRX) 25 MG CAPSULE PO ×3 (09:12→20:50)
[2021-05-12] MEDS: ENOXAPARIN 40 MG/0.4 ML SYRINGE SUB-Q (09:15)
[2021-05-12] MEDS: POTASSIUM CHLORIDE 20 MEQ TABLET PO (09:16)
[2021-05-12] MEDS: LORazepam INJ (*CRX) 2 MG/ML VIAL IV PUSH (09:27)
--- NOTE | 2021-05-12 12:26 | PM.IMPN ---
Progress Note: A&P Assessment and Plan (1) Alcohol withdrawal: Code(s): F10.239 - Alcohol dependence with withdrawal, unspecified Status: Acute Assessment and Plan: Started on CIWA with Ativan Q4R PRN, Tremors improved today, Pt is not requesting AMA, Pt is compliant 05/12/2021 CIWA-Ar medication regimen adjusted, Thiamin 200 mg added daily, Pt did have a fall this AM see RN report, no new injuries, multiple UE old ecchymosis sites (2) Thrombocytopenia: Code(s): D69.6 - Thrombocytopenia, unspecified Status: Acute Assessment and Plan: Plt 80, 74, 70, Pt is on Eliquis, Monitor to maintain > 50 for Anticoagulation and < 20 will receive transfusion. 05/12/2021 Plt 64, continue to monitor (3) Acute hyponatremia: Code(s): E87.1 - Hypo-osmolality and hyponatremia Status: Acute Assessment and Plan: IVF as noted, monitor BMP 05/12/2021 WNL, continue to monitir (4) Acute hypokalemia: Code(s): E87.6 - Hypokalemia Status: Acute Assessment and Plan: K rider in ER, Potassium 20 BID, monitor BMP, Mag also low 05/12/2021 Potassium daily increased to 40 BID, still 2.6 today, added additional 40 mEq Once (5) Hypomagnesemia: Code(s): E83.42 - Hypomagnesemia Status: Acute Assessment and Plan: Mag rider in ER will recheck in AM 05/12/2021 Mag 1.9 yesterday (6) Seizure: Code(s): R56.9 - Unspecified convulsions Status: Acute Assessment and Plan: As noted in HPI, will monitor for seizures, seizure precautions, electrolyte imbalance, new onset, no changes in medications or OTC supplements, see Head CT report: FINDINGS: Small region of cortical encephalomalacia consistent with 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 No acute intracranial hemorrhage, acute infarction or abnormal extra axial fluid collection. Ventricles are normal and symmetric. No mass/mass effect. Complete opacification of the visualized portion of the right maxillary sinus with thickened sclerotic rios suggesting chronic sinusitis. Additional mucosal thickening in a few of the bilateral ethmoid sinuses. The orbits and mastoid air cells are normal. Mild atherosclerotic calcification at the bilateral carotid siphons. IMPRESSION: 1. No acute intracranial process. 2. 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 3. Chronic right maxillary sinusitis. MRI Brain ordered: will be available on Friday05/12/2021. 05/12/2021 no seizures reported, continue to monitor (7) Vomiting and diarrhea: Code(s): R11.10 - Vomiting, unspecified; R19.7 - Diarrhea, unspecified Status: Acute Assessment and Plan: IVF 1 L bolus in ER with 100 ml/h continuation on floor, likely cause for electrolyte imbalance. 05/12/2021 IVF at 100/h, no vomiting, no diarrhea reported (8) HTN (hypertension): Code(s): I10 - Essential (primary) hypertension Status: Acute Assessment and Plan: Will restart home medications in AM when a verified list is available otherwise monitor, make adjustments as needed. 05/12/2021 Elevated this AM however Pt was quite agitated. Subjective Date/time seen: 05/12/21 12:26 Pt was quite agitated this AM. Pt requires calm approach so as to not heighten his already stressful withdrawal symptoms one of which is obviously confusion. Once Pt is calm he cooperates better but not always properly. His requests are to go outside and smoke, walk to the restroom, wanting to know why bed alarms are on, and other care related questions. These questions have been answered multiple times but he does not recall them all the time nor understand the reasoning. Pt does need his CIWA-Ar medication adjusted. Pt fell early this AM while attempting to walk. His bed alarm was on and his bed is right in front of the RN station. He fell onto his bottom without injury. Review of Systems Review of Systems: ROS unobtainable: Yes unobtainable due to medical c
[2021-05-12] MEDS: THIAMINE HCL 100 MG TABLET 200 MG PO (14:32)
[2021-05-12] MEDS: MELATONIN 5 MG TABLET 10 MG PO (20:57)
[2021-05-13] VITALS (9 sets, daily range): BP systolic 125–168; BP diastolic 87–98; PULSE 57–76; RESP 16–20; TEMP 35.7–36.7; O2SAT 93–97
[2021-05-13] MEDS: chlordiazePOXIDE (*CRX) 25 MG CAPSULE PO ×4 (03:02→21:01)
[2021-05-13 05:29] LABS: Hematocrit 34.6 % (40.0-54.0); Hemoglobin 12.2 g/dL (14.0-18.0); Immature Platelet Fraction Pct 14.7 % (1.0-7.0); Mean Corpuscular HGB Conc 35.3 g/dL (32.0-36.0); Mean Corpuscular Hemoglobin 37.3 pg (27.0-31.0); Mean Corpuscular Volume 105.8 fL (78.0-102.0); Mean Platelet Volume 12.4 fl (8.7-11.0); Platelet Count Result 80 K/mm3 (150-420); Red Blood Count 3.27 M/mm3 (4.70-6.10); Red Cell Distribution Width 13.9 % (11.6-14.4); White Blood Count 5.8 K/mm3 (4.8-10.8)
[2021-05-13 05:35] LABS: Anion Gap 10 mmol/L (8-16); Blood Urea Nitrogen 7 mg/dL (7-18); Calcium 8.3 mg/dL (8.5-10.1); Carbon Dioxide 30 mmol/L (21-32); Chloride 98 mmol/L (98-108); Estimated CRCL calculation 92 ml/min; Estimated Glomerular Filt Rate > 60; Glucose 160 mg/dL (70-99); Magnesium 1.7 mg/dL (1.8-2.4); Osmolality Calculated 287 mOsm/kg (285-295); Potassium 3.1 mmol/L (3.5-5.1); Sodium 138 mmol/L (136-145)
[2021-05-13] MEDS: methylPREDNISolone SOD SUCC 40 MG VIAL IV PUSH ×4 (06:06→21:11)
[2021-05-13] MEDS: AZELASTINE HCL NASAL 0.1% 137 MCG/SPR 30 ML BTL 1 SPRAY NASAL ×2 (09:53→21:00)
[2021-05-13] MEDS: POTASSIUM CHLORIDE 20 MEQ TABLET 40 MEQ PO ×2 (09:54→16:49)
[2021-05-13] MEDS: NICOTINE (*PBKC) 21 MG PATCH 1 PATCH TRANSDERM (09:54)
[2021-05-13] MEDS: lisinopriL 10 MG TABLET PO (09:55)
[2021-05-13] MEDS: PROPRANOLOL HCL 20 MG TABLET PO ×2 (09:55→21:01)
[2021-05-13] MEDS: SODIUM CHLORIDE 0.9% IV 1,000 ML 100 ML IV CONT (09:55)
[2021-05-13] MEDS: ATORVASTATIN 40 MG TABLET PO (09:55)
[2021-05-13] MEDS: CLOPIDOGREL BISULFATE 75 MG TABLET PO (09:55)
[2021-05-13] MEDS: SERTRALINE HCL 50 MG TABLET PO (09:55)
[2021-05-13] MEDS: THIAMINE HCL 100 MG TABLET 200 MG PO (09:55)
[2021-05-13] MEDS: ENOXAPARIN 40 MG/0.4 ML SYRINGE SUB-Q (09:56)
--- NOTE | 2021-05-13 09:58 | PM.IMPN ---
Progress Note: A&P Assessment and Plan (1) Alcohol withdrawal: Code(s): F10.239 - Alcohol dependence with withdrawal, unspecified Status: Acute Assessment and Plan: Started on CIWA with Ativan Q4R PRN, Tremors improved today, Pt is not requesting AMA, Pt is compliant 05/12/2021 CIWA-Ar medication regimen adjusted, Thiamin 200 mg added daily, Pt did have a fall this AM see RN report, no new injuries, multiple UE old ecchymosis sites 05/13/2021 Current CIWA regimen working well for this Pt along with librium (2) Thrombocytopenia: Code(s): D69.6 - Thrombocytopenia, unspecified Status: Acute Assessment and Plan: Plt 80, 74, 70, Pt is on Eliquis, Monitor to maintain > 50 for Anticoagulation and < 20 will receive transfusion. 05/12/2021 Plt 64, continue to monitor 05/13/2021 Plt 80 (3) Acute hyponatremia: Code(s): E87.1 - Hypo-osmolality and hyponatremia Status: Acute Assessment and Plan: IVF as noted, monitor BMP 05/12/2021 WNL, continue to monitor 05/13/2021 Resolved will monitor (4) Acute hypokalemia: Code(s): E87.6 - Hypokalemia Status: Acute Assessment and Plan: K rider in ER, Potassium 20 BID, monitor BMP, Mag also low 05/12/2021 Potassium daily increased to 40 BID, still 2.6 today, added additional 40 mEq Once 05/13/2021 3.1 getting 40 mEq daily, monitoring (5) Hypomagnesemia: Code(s): E83.42 - Hypomagnesemia Status: Acute Assessment and Plan: Mag rider in ER will recheck in AM 05/12/2021 Mag 1.9 yesterday 05/13/2021 1.7, 2 gm Mag rider (6) Seizure: Code(s): R56.9 - Unspecified convulsions Status: Acute Assessment and Plan: As noted in HPI, will monitor for seizures, seizure precautions, electrolyte imbalance, new onset, no changes in medications or OTC supplements, see Head CT report: FINDINGS: Small region of cortical encephalomalacia consistent with 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 No acute intracranial hemorrhage, acute infarction or abnormal extra axial fluid collection. Ventricles are normal and symmetric. No mass/mass effect. Complete opacification of the visualized portion of the right maxillary sinus with thickened sclerotic rios suggesting chronic sinusitis. Additional mucosal thickening in a few of the bilateral ethmoid sinuses. The orbits and mastoid air cells are normal. Mild atherosclerotic calcification at the bilateral carotid siphons. IMPRESSION: 1. No acute intracranial process. 2. 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 3. Chronic right maxillary sinusitis. MRI Brain ordered: will be available on Friday05/12/2021. 05/12/2021 no seizures reported, continue to monitor 05/13/2021 No changes (7) Vomiting and diarrhea: Code(s): R11.10 - Vomiting, unspecified; R19.7 - Diarrhea, unspecified Status: Acute Assessment and Plan: IVF 1 L bolus in ER with 100 ml/h continuation on floor, likely cause for electrolyte imbalance. 05/12/2021 IVF at 100/h, no vomiting, no diarrhea reported 05/13/2021 No changes (8) HTN (hypertension): Code(s): I10 - Essential (primary) hypertension Status: Acute Assessment and Plan: Will restart home medications in AM when a verified list is available otherwise monitor, make adjustments as needed. 05/12/2021 Elevated this AM however Pt was quite agitated. 05/13/2021 BP fluctuating continuing to monitor, no changes at this time. Subjective Date/time seen: 05/13/21 09:58 Pt resting in bed having breakfast. He is pleasant and talkative. Pt has no recollection of the past couple days. He has no complaints of pain, discomfort. Pt is more relaxed today and doing well. Review of Systems Review of Systems: All systems reviewed & are unremarkable except as noted in HPI and below Exam Const: General: cooperative, comfortable, no acute distress, well developed, alert, awake, Physically active and confusion N
[2021-05-13] MEDS: MAGNESIUM SULF 2 GM/WATER 50ML 2 GM/50 ML BAG IVPB (10:06)
[2021-05-13] MEDS: MAGNESIUM OXIDE 400 MG TABLET PO (16:49)
[2021-05-13] MEDS: MELATONIN 5 MG TABLET 10 MG PO (21:01)
[2021-05-14] VITALS (9 sets, daily range): BP systolic 121–166; BP diastolic 84–99; PULSE 53–69; RESP 18–20; TEMP 35.8–36.5; O2SAT 95–100
[2021-05-14] MEDS: chlordiazePOXIDE (*CRX) 25 MG CAPSULE PO ×3 (03:42→17:28)
[2021-05-14] MEDS: methylPREDNISolone SOD SUCC 40 MG VIAL IV PUSH ×4 (04:00→21:29)
[2021-05-14] MEDS: SODIUM CHLORIDE 0.9% IV 1,000 ML 100 ML IV CONT ×2 (05:59→20:44)
[2021-05-14 06:07] LABS: Hematocrit 35.4 % (40.0-54.0); Hemoglobin 12.4 g/dL (14.0-18.0); Mean Corpuscular Hemoglobin 37.1 pg (27.0-31.0); Mean Platelet Volume 12.7 fl (8.7-11.0); Platelet Count Result 94 K/mm3 (150-420); Red Blood Count 3.34 M/mm3 (4.70-6.10); Red Cell Distribution Width 14.1 % (11.6-14.4); White Blood Count 5.8 K/mm3 (4.8-10.8)
[2021-05-14 06:22] LABS: Anion Gap 9 mmol/L (8-16); Blood Urea Nitrogen 8 mg/dL (7-18); Calcium 8.3 mg/dL (8.5-10.1); Carbon Dioxide 29 mmol/L (21-32); Chloride 98 mmol/L (98-108); Estimated CRCL calculation 91 ml/min; Estimated Glomerular Filt Rate > 60; Glucose 179 mg/dL (70-99); Magnesium 1.9 mg/dL (1.8-2.4); Osmolality Calculated 284 mOsm/kg (285-295); Potassium 3.4 mmol/L (3.5-5.1); Sodium 136 mmol/L (136-145)
--- NOTE | 2021-05-14 08:10 | PM.IMPN ---
Progress Note: A&P Assessment and Plan (1) Alcohol withdrawal: Code(s): F10.239 - Alcohol dependence with withdrawal, unspecified <Clifford McgregorGERARD Funk - Last Filed: 05/14/21 17:26> Status: Acute <Clifford Swanson GERARD Ayoub - Last Filed: 05/14/21 17:26> Assessment and Plan: Started on CIWA with Ativan Q4R PRN, Tremors improved today, Pt is not requesting AMA, Pt is compliant 05/12/2021 CIWA-Ar medication regimen adjusted, Thiamin 200 mg added daily, Pt did have a fall this AM see RN report, no new injuries, multiple UE old ecchymosis sites 05/13/2021 Current CIWA regimen working well for this Pt along with Librium 05/14/2021 Decreased Librium to Q8H, Pt doing better, walking in the steele with PT maintaining good balance. <Clifford MecheGERARD Funk - Last Filed: 05/14/21 17:26> (2) Thrombocytopenia: Code(s): D69.6 - Thrombocytopenia, unspecified <Clifford Swanson GERARD Ayoub - Last Filed: 05/14/21 17:26> Status: Acute <Clifford Swanson GERARD Ayoub - Last Filed: 05/14/21 17:26> Assessment and Plan: Plt 80, 74, 70, Pt is on Eliquis, Monitor to maintain > 50 for Anticoagulation and < 20 will receive transfusion. 05/12/2021 Plt 64, continue to monitor 05/13/2021 Plt 80 05/14/2021 Plt 94 <Clifford MecheGERARD Funk - Last Filed: 05/14/21 17:26> (3) Acute hyponatremia: Code(s): E87.1 - Hypo-osmolality and hyponatremia <Clifford MecheGERARD Funk - Last Filed: 05/14/21 17:26> Status: Acute <Clifford McgregorRaheel Ayoub APN-C[place]on - Last Filed: 05/14/21 17:26> Assessment and Plan: IVF as noted, monitor BMP 05/12/2021 WNL, continue to monitor 05/13/2021 Resolved will monitor 05/14/2021 ... <Clifford Ayoub MANAGER MARKET DEVELOPMENT-C - Last Filed: 05/14/21 17:26> (4) Acute hypokalemia: Code(s): E87.6 - Hypokalemia <Clifford Ayoub [employer]NAGER MARK[employer] DEVELOPMENT-[employer] - Last Filed: 05/14/21 17:26> Status: Acute <Clifford Ayoub MANAGER MARK[employer] DEVELOPMENT-[employer] - Last Filed: 05/14/21 17:26> Assessment and Plan: K rider in ER, Potassium 20 BID, monitor BMP, Mag also low 05/12/2021 Potassium daily increased to 40 BID, still 2.6 today, added additional 40 mEq Once 05/13/2021 3.1 getting 40 mEq daily, monitoring 05/14/2021 3.4 continue with daily regimen, monitor <Clifford Ayoub [employer]GER [employer] DEVELOPMENT-[employer] - Last Filed: 05/14/21 17:26> (5) Hypomagnesemia: Code(s): E83.42 - Hypomagnesemia <Clifford Ayoub [employer]GER [employer]ELOPMENT[employer] - Last Filed: 05/14/21 17:26> Status: Acute <Clifford Ayoub, MANAGER MARK[employer] DEVELOPMENT-[employer] - Last Filed: 05/14/21 17:26> Assessment and Plan: Mag rider in ER will recheck in AM 05/12/2021 Mag 1.9 yesterday 05/13/2021 1.7, 2 gm Mag rider 05/14/2021 1.9, monitor <Clifford Ayoub [employer]GER [employer]ELOPMENT[employer] - Last Filed: 05/14/21 17:26> (6) Seizure: Code(s): R56.9 - Unspecified convulsions <Clifford Ayoub, MANAGER [employer]ELOPMENT[employer] - Last Filed: 05/14/21 17:26> Status: Acute <Clifford Ayoub MANAGER MARK[employer] DEVELOPMENT[employer] - Last Filed: 05/14/21 17:26> Assessment and Plan: As noted in HPI, will monitor for seizures, seizure precautions, electrolyte imbalance, new onset, no changes in medications or OTC supplements, see Head CT report: FINDINGS: Small region of cortical encephalomalacia consistent with 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 No acute intracranial hemorrhage, acute infarction or abnormal extra axial fluid collection. Ventricles are normal and symmetric. No mass/mass effect. Complete opacification of the visualized portion of the right maxillary sinus with thickened sclerotic rios suggesting chronic sinusitis. Additional mucosal thickening in a few of the bilateral ethmoid sinuses. The orbits and mastoid air cells are normal. Mild atherosclerotic calcification at the bilateral carotid siphons. IMPRESSION: 1. No acute intracranial process. 2. 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 3. Chronic right maxillary sinusitis. MRI Brain ordered: will be available on Friday05/12/2021. 05/12/2021 no seizures reported, co
[2021-05-14] MEDS: POTASSIUM CHLORIDE 20 MEQ TABLET 40 MEQ PO ×2 (09:05→17:28)
[2021-05-14] MEDS: NICOTINE (*PBKC) 21 MG PATCH 1 PATCH TRANSDERM (09:05)
[2021-05-14] MEDS: AZELASTINE HCL NASAL 0.1% 137 MCG/SPR 30 ML BTL 1 SPRAY NASAL ×2 (09:05→21:30)
[2021-05-14] MEDS: ENOXAPARIN 40 MG/0.4 ML SYRINGE SUB-Q (09:10)
[2021-05-14] MEDS: CLOPIDOGREL BISULFATE 75 MG TABLET PO (09:11)
[2021-05-14] MEDS: ATORVASTATIN 40 MG TABLET PO (09:11)
[2021-05-14] MEDS: THIAMINE HCL 100 MG TABLET 200 MG PO (09:11)
[2021-05-14] MEDS: PROPRANOLOL HCL 20 MG TABLET PO ×2 (09:11→21:29)
[2021-05-14] MEDS: SERTRALINE HCL 50 MG TABLET PO (09:11)
[2021-05-14] MEDS: MAGNESIUM OXIDE 400 MG TABLET PO ×2 (09:11→17:28)
[2021-05-14] MEDS: lisinopriL 10 MG TABLET PO (09:12)
[2021-05-14] MEDS: MELATONIN 5 MG TABLET 10 MG PO (21:30)
[2021-05-15] VITALS: BP 160/90; PULSE 56; TEMP 36.2; O2SAT 98
[2021-05-15] MEDS: chlordiazePOXIDE (*CRX) 25 MG CAPSULE PO ×2 (00:39→08:17)
[2021-05-15 04:00] VITALS: BP 160/98; PULSE 5; PULSE 53; PULSE 54; RESP 18; TEMP 36.4; O2SAT 98
[2021-05-15] MEDS: methylPREDNISolone SOD SUCC 40 MG VIAL IV PUSH ×2 (04:24→11:16)
[2021-05-15 06:00] LABS: Hematocrit 37.9 % (40.0-54.0); Hemoglobin 13.1 g/dL (14.0-18.0); Mean Corpuscular HGB Conc 34.6 g/dL (32.0-36.0); Mean Corpuscular Hemoglobin 37.4 pg (27.0-31.0); Mean Corpuscular Volume 108.3 fL (78.0-102.0); Mean Platelet Volume 12.7 fl (8.7-11.0); Platelet Count Result 126 K/mm3 (150-420); Red Cell Distribution Width 14.2 % (11.6-14.4); White Blood Count 5.8 K/mm3 (4.8-10.8)
[2021-05-15 06:09] LABS: Anion Gap 7 mmol/L (8-16); Blood Urea Nitrogen 11 mg/dL (7-18); Calcium 8.4 mg/dL (8.5-10.1); Carbon Dioxide 32 mmol/L (21-32); Chloride 98 mmol/L (98-108); Estimated CRCL calculation 95 ml/min; Estimated Glomerular Filt Rate > 60; Glucose 191 mg/dL (70-99); Magnesium 1.9 mg/dL (1.8-2.4); Osmolality Calculated 288 mOsm/kg (285-295); Potassium 3.8 mmol/L (3.5-5.1); Sodium 137 mmol/L (136-145)
--- NOTE | 2021-05-15 07:30 | PC.NURSE ---
Patient up in room with stand by assist, able to dress self with minimal assist
[2021-05-15 08:00] VITALS: BP 140/70; PULSE 60; RESP 18; TEMP 36.1; O2SAT 96
[2021-05-15] MEDS: NICOTINE (*PBKC) 21 MG PATCH 1 PATCH TRANSDERM (08:13)
[2021-05-15] MEDS: AZELASTINE HCL NASAL 0.1% 137 MCG/SPR 30 ML BTL 1 SPRAY NASAL (08:13)
[2021-05-15 08:15] VITALS: PULSE 60
[2021-05-15] MEDS: POTASSIUM CHLORIDE 20 MEQ TABLET 40 MEQ PO (08:15)
[2021-05-15] MEDS: lisinopriL 10 MG TABLET PO (08:15)
[2021-05-15] MEDS: PROPRANOLOL HCL 20 MG TABLET PO (08:15)
[2021-05-15] MEDS: SERTRALINE HCL 50 MG TABLET PO (08:15)
[2021-05-15] MEDS: ENOXAPARIN 40 MG/0.4 ML SYRINGE SUB-Q (08:15)
[2021-05-15] MEDS: MAGNESIUM OXIDE 400 MG TABLET PO (08:16)
[2021-05-15] MEDS: THIAMINE HCL 100 MG TABLET 200 MG PO (08:16)
[2021-05-15] MEDS: CLOPIDOGREL BISULFATE 75 MG TABLET PO (08:17)
[2021-05-15] MEDS: ATORVASTATIN 40 MG TABLET PO (08:17)
--- NOTE | 2021-05-15 10:40 | PC.NURSE ---
To MRI via wheel chair
--- NOTE | 2021-05-15 11:00 | PC.NURSE ---
returned from MRI
--- NOTE | 2021-05-15 11:19 | PM.DS ---
DS: Admitting Diagnosis Discharge Date 05/15/21 Admitting Diagnosis Alcohol withdrawal, electrolyte imbalance, hallucination, nausea vomiting diarrhea DS: Discharge Diagnosis Discharge Diagnosis (1) Alcohol withdrawal: Code(s): F10.239 - Alcohol dependence with withdrawal, unspecified Status: Acute Assessment and Plan: Started on CIWA with Ativan Q4R PRN, Tremors improved today, Pt is not requesting AMA, Pt is compliant 05/12/2021 CIWA-Ar medication regimen adjusted, Thiamin 200 mg added daily, Pt did have a fall this AM see RN report, no new injuries, multiple UE old ecchymosis sites 05/13/2021 Current CIWA regimen working well for this Pt along with Librium 05/14/2021 Decreased Librium to Q8H, Pt doing better, walking in the [place] with PT maintaining good balance. Librium decreased to 10 mg every 8 hour, patient will also discharge home with hydroxyzine for anxiety (2) Thrombocytopenia: Code(s): D69.6 - Thrombocytopenia, unspecified Status: Acute Assessment and Plan: Plt 80, 74, 70, Pt is on Eliquis, Monitor to maintain > 50 for Anticoagulation and < 20 will receive transfusion. 05/12/2021 Plt 64, continue to monitor 05/13/2021 Plt 80 05/14/2021 Plt 94 Improving [id number] (3) Acute hyponatremia: Code(s): E87.1 - Hypo-osmolality and hyponatremia Status: Acute Assessment and Plan: IVF as noted, monitor BMP 05/12/2021 WNL, continue to monitor 05/13/2021 Resolved will monitor 05/14/2021 ... Resolved (4) Acute hypokalemia: Code(s): E87.6 - Hypokalemia Status: Acute Assessment and Plan: K rider in ER, Potassium 20 BID, monitor BMP, Mag also low 05/12/2021 Potassium daily increased to 40 BID, still 2.6 today, added additional 40 mEq Once 05/13/2021 3.1 getting 40 mEq daily, monitoring 05/14/2021 3.4 continue with daily regimen, monitor Patient will discharge home with potassium supplement for 1 week repeat CMP results morning to his primary care physician for further evaluation and treatment (5) Hypomagnesemia: Code(s): E83.42 - Hypomagnesemia Status: Acute Assessment and Plan: Mag rider in ER will recheck in AM 05/12/2021 Mag 1.9 yesterday 05/13/2021 1.7, 2 gm Mag rider 05/14/2021 1.9, monitor Stable on discharge (6) Seizure: Code(s): R56.9 - Unspecified convulsions Status: Acute Assessment and Plan: As noted in HPI, will monitor for seizures, seizure precautions, electrolyte imbalance, new onset, no changes in medications or OTC supplements, see Head CT report: FINDINGS: Small region of cortical encephalomalacia consistent with 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 No acute intracranial hemorrhage, acute infarction or abnormal extra axial fluid collection. Ventricles are normal and symmetric. No mass/mass effect. Complete opacification of the visualized portion of the right maxillary sinus with thickened sclerotic rios suggesting chronic sinusitis. Additional mucosal thickening in a few of the bilateral ethmoid sinuses. The orbits and mastoid air cells are normal. Mild atherosclerotic calcification at the bilateral carotid siphons. IMPRESSION: 1. No acute intracranial process. 2. 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 3. Chronic right maxillary sinusitis. MRI Brain ordered: will be available on Friday05/12/2021. 05/12/2021 no seizures reported, continue to monitor 05/13/2021 No changes 05/14/2021 ... Patient 7 days without alcohol past critical phase. Will discharge with Librium 10 mg every 8 hour for today (7) Vomiting and diarrhea: Code(s): R11.10 - Vomiting, unspecified; R19.7 - Diarrhea, unspecified Status: Acute Assessment and Plan: IVF 1 L bolus in ER with 100 ml/h continuation on floor, likely cause for electrolyte imbalance. 05/12/2021 IVF at 100/h, no vomiting, no diarrhea reported 05/13/2021 No changes 05/14/2021 ... Resolved (8) HTN (hypertension
--- NOTE | 2021-05-15 12:00 | PC.NURSE ---
patient to dc today, telemetry discontinued
--- NOTE | 2021-05-15 13:24 | PC.NURSE ---
discharge instructions reviewed with patient, verbalized understanding
[2021-05-15] MEDS: chlordiazePOXIDE (*CRX) 10 MG CAPSULE PO (13:42)
--- NOTE | 2021-05-15 15:00 | PC.NURSE ---
discharge to home via wheel chair, all personal items returned to patient
== END 2021-05-15 15:00 | disposition home or self-care (01) | DRG 641 ==
LOC: CHSED 16:31 → CHS2ND 22:05
PROVIDERS: Nurse Practitioner Family; Admitting Provider Emergency Medicine; Emergency Provider Emergency Medicine; PCP Nurse Practitioner Family; Visit Provider Emergency Medicine
DX: E87.6 Hypokalemia (principal); F10.239 Alcohol dependence with withdrawal, unspecified; E87.1 Hypo-osmolality and hyponatremia; E83.42 Hypomagnesemia; R56.9 Unspecified convulsions; D69.6 Thrombocytopenia, unspecified; I10 Essential (primary) hypertension; E78.5 Hyperlipidemia, unspecified; R11.10 Vomiting, unspecified; F41.9 Anxiety disorder, unspecified; Z87.891 Personal history of nicotine dependence
CPT/HCPCS: 36415; 70450; 70544; 70551; 71046; 80048; 80053; 83605; 83735; 85025; 85027; 85055; 93005; 94640; 96361; 96365; 96366; 96367; 96372; 96375; 96376; 97110; 97161; 97530; 99285; A9270; G0378; J1630; J1650; J2060; J2920; J2930; J3411; J3475; J3480; J7030

== ENCOUNTER 2021-05-22 08:41 | Outpatient (CLI) | payer BC, SELFPAY ==
[2021-05-22 10:10] LABS: Alanine Aminotransferase 74 U/L (16-63); Albumin Level 3.1 g/dL (3.4-5.0); Alkaline Phosphatase 172 U/L (46-116); Anion Gap 11 mmol/L (8-16); Aspartate Amino Transferase 33 U/L (15-37); Bilirubin,Total 1.4 mg/dL (0.00-1.00); Blood Urea Nitrogen 9 mg/dL (7-18); Calcium 9.2 mg/dL (8.5-10.1); Carbon Dioxide 27 mmol/L (21-32); Chloride 97 mmol/L (98-108); Estimated Glomerular Filt Rate > 60; Glucose 97 mg/dL (70-99); Osmolality Calculated 278 mOsm/kg (285-295); Sodium 135 mmol/L (136-145); Total Protein 7.3 g/dL (6.4-8.2)
[2021-05-22 11:26] LABS: Hematocrit 42.9 % (40.0-54.0); Hemoglobin 14.4 g/dL (14.0-18.0); Iron 73 ug/dL (65-175); Magnesium 2.3 mg/dL (1.8-2.4); Mean Corpuscular HGB Conc 33.6 g/dL (32.0-36.0); Mean Corpuscular Hemoglobin 37.2 pg (27.0-31.0); Mean Corpuscular Volume 110.9 fL (78.0-102.0); Mean Platelet Volume 11.8 fl (8.7-11.0); Platelet Count Result 228 K/mm3 (150-420); Red Blood Count 3.87 M/mm3 (4.70-6.10); Red Cell Distribution Width 13.5 % (11.6-14.4); White Blood Count 8.5 K/mm3 (4.8-10.8)
[2021-05-22 11:59] LABS: Band Neutrophils Percent 0 % (0-6); Basophils Percent Manual 0 % (0-1); Eosinophils Percent Manual 0 % (1-6); Lymphocytes Absolute Manual 1.61 K/mm3 (1.1-4.5); Lymphocytes Percent Manual 19 % (18-44); Monocytes Absolute Manual 0.93 K/mm3 (0.1-0.90); Monocytes Percent Manual 11 % (3-9); Neutrophils Absolute Manual 5.95 K/mm3 (1.3-6.7); Neutrophils Percent Manual 70 % (46-73); Platelet Estimate Adequate (Adequate); Total Cells Counted 100
== END 2021-05-22 08:42 | disposition home or self-care (01) ==
PROVIDERS: PCP Nurse Practitioner Family; Visit Provider Nurse Practitioner Family
DX: E87.6 Hypokalemia (principal); E83.42 Hypomagnesemia; E87.1 Hypo-osmolality and hyponatremia; D64.9 Anemia, unspecified; D69.6 Thrombocytopenia, unspecified
CPT/HCPCS: 36415; 80053; 83540; 83735; 85025

== ENCOUNTER 2022-06-03 23:33 | Emergency (ER) | payer OTHER, SELFPAY ==
--- NOTE | ~2022-06-03 | XR_ITS ---
EXAMINATION: XR hip RT 2V w AP pelvis DATE: 06/04/2022 00:49 INDICATION: Right hip pain. TECHNIQUE: An anteroposterior view of the pelvis and 2 views of right hip were obtained. COMPARISON: None. FINDINGS: Bone alignment is normal. No fracture. There is mild lumbar spondylosis. There is moderate right hip osteoarthritis and mild left hip osteoarthritis. IMPRESSION: 1. Moderate right hip osteoarthritis and mild left hip osteoarthritis. Reviewed, dictated and finalized at location A. NT TECHNOLOGIES SPECIALIST
--- NOTE | ~2022-06-03 | CT_ITS ---
EXAMINATION: CT brain wo con DATE: 06/04/2022 00:48 INDICATION: Fall. TECHNIQUE: Computed tomography (CT) of the head was performed without intravenous contrast. The mA wa s adjusted according to patient size. Iterative reconstruction technique was employed. The dose-lengt h product was 605.33 mGy-cm. COMPARISON: Head CT 1 10/24, brain MRI 05/15/2021 FINDINGS: There is an old infarct in right frontoparietal region. There is no intracranial hemorrhage , acute infarction, or abnormal intracranial mass lesion. The ventricles are normal in size. The orbi ts are normal. There is complete opacification of the visualized portion of right maxillary sinus wit h thickening and sclerosis of the sinus rios, consistent with chronic sinusitis. There is mild mucos al thickening in the ethmoid sinuses. The mastoid air cells are normal. IMPRESSION: 1. 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 2. Chronic sinusitis. Reviewed, dictated and finalized at location A. TER SUPPLY WORKER
[2022-06-03 23:35] VITALS: BP 145/90; PULSE 88; RESP 20; TEMP 36.1; O2SAT 98
--- NOTE | 2022-06-03 23:37 | ED.FALL ---
HPI - Fall General Chief Complaint: Extremity Problem,Nontraumatic Stated Complaint: FALL Time Seen by Provider: 06/03/22 23:37 Source: patient Mode of arrival: ambulatory History of Present Illness HPI Narrative: 61-year-old male with a history of alcoholism, smoker, hypertension, dyslipidemia, transaminitis was brought in by EMS -- after a fall outside a local bar -- patient was unable to stand up on his own. on presentation to the ER the patient got up from the stretcher and walk to his bed. -- right hip pain which has been present for the past 2 weeks. The patient denies any head injury or loss of consciousness. No other injuries noted other than his right hip pain. unable to get an accurate history as the patient appears intoxicated. MD complaint: fall Onset (ago): hour(s) ( 1 hour ago.) Fall from: standing Fall witnessed: no Place fall occurred: other ( Outside a local bar) Loss of consciousness: unsure Prolonged down time: no Related Data Home Medications Medication Instructions Recorded Confirmed lisinopril 10 mg tablet 10 mg PO DAILY 05/11/21 06/03/22 Allergies Allergy/AdvReac Type Severity Reaction Status Date / Time Penicillins Allergy Intermediate Rash Verified 08/14/21 15:12 Review of Systems Review of Systems: All systems reviewed & are unremarkable except as noted in HPI and below Constitutional: Constitutional: Reports as per HPI and Reports no additional constitutional complaints Eyes: Eyes: Reports as per HPI and Reports no additional eye complaints ENT: Reports system reviewed and no additional complaints, except as documented and Reports as per HPI Cardiovascular: Cardiovascular: Reports as per HPI and Reports no additional cardiovascular complaints Respiratory: Respiratory: Reports as per HPI and Reports no additional respiratory complaints Gastrointestinal: Gastrointestinal: Reports as per HPI and Reports no additional gastrointestinal complaints Genitourinary: Genitourinary: Reports no additional male genitourinary complaints and Reports as per HPI Musculoskeletal: Musculoskeletal: Reports no additional musculoskeletal complaints and Reports as per HPI Comments: Right hip pain with decreased range of motion Integumentary/Breasts: Skin/Breast: Reports system reviewed and no additional complaints, except as docu and Reports as per HPI Neurologic: Reports system reviewed and no additional complaints, except as documented and Reports as per HPI Psychiatric: Psychiatric: Reports no additional psychiatric complaints and Reports as per HPI Endocrine: Endocrine: Reports no additional endocrine complaints and Reports as per HPI Hematologic/Lymphatic: Hematologic/Lymphatic: Reports no additional hematologic/lymphatic complaints and Reports as per HPI Allergic/Immunologic: Allergic/Immunologic: Reports no additional allergic/immunologic complaints and Reports as per HPI PMFSH Past Medical History Medical History Anxiety HTN (hypertension) Hyperlipidemia Nicotine dependence, cigarettes, uncomplicated Surgical History Surgical History Hx of tonsillectomy Age 11 Family History Family History Father Hypertension Social History Social History Smoking packs per day: 0.5 Smoking cigarettes per day: 10.0 Years smoked: 20 Smoking pack-years: 10.00 Smoking status: Current every day smoker Tobacco type: cigarettes Second hand tobacco smoke exposure: Yes Alcohol intake: current Drinks per week: 3 Substance use: never Substance use type: does not use Spiritual care concerns: No Exam Const: General: no acute distress Orientation/consciousness: patient oriented x3 Limitations: no limitations HENMT: Head: normal to inspection
--- NOTE | 2022-06-04 00:04 | ECG_ITS ---
Measurements Intervals [place] Rate: 80 P: 57 AR: 174 QRS: 4 QRSD: 110 T: 35 QT: 389 QTc: 450 Interpretive Statements SINUS RHYTHM INTRAVENTRICULAR CONDUCTION DELAY BORDERLINE R WAVE PROGRESSION, ANTERIOR LEADS BASELINE ARTIFACT- I, II, III, AVR, AVL, AVF, V1-V3 BORDERLINE ECG COMPARED TO ECG 05/10/2021 15:15:20 NO SIGNIFICANT CHANGES Electronically Signed On 06-04-2022 6:56:59 HISTOLOGIST by Nelson Caceres D.O.
[2022-06-04 00:20] LABS: Basophils Absolute Auto 0.07 K/mm3 (0.00-0.10); Eosinophils Percent Auto 2.8 % (1.0-6.0); Hematocrit 39.3 % (40.0-54.0); Hemoglobin 12.7 g/dL (14.0-18.0); Immature Granulocyte Absolute 0.02 K/mm3 (0.00-0.00); Immature Granulocyte Percent A 0.3 % (0.0-0.0); Lymphocytes Absolute Auto 2.37 K/mm3 (1.10-4.50); Lymphocytes Percent Auto 32.7 % (18.0-42.0); Mean Corpuscular HGB Conc 32.3 g/dL (32.0-36.0); Mean Corpuscular Hemoglobin 31.4 pg (27.0-31.0); Mean Corpuscular Volume 97.3 fL (78.0-102.0); Mean Platelet Volume 9.4 fl (8.7-11.0); Monocytes Absolute Auto 1.03 K/mm3 (0.10-0.90); Monocytes Percent Auto 14.2 % (2.0-11.0); Neutrophils Absolute Auto 3.6 K/mm3 (1.7-7.2); Platelet Count Result 161 K/mm3 (150-420); Red Blood Count 4.04 M/mm3 (4.70-6.10); Red Cell Distribution Width 13.4 % (11.6-14.4); White Blood Count 7.3 K/mm3 (4.8-10.8)
[2022-06-04 00:33] LABS: Prothrombin Time 10.8 Seconds (9.50-12.10)
[2022-06-04 00:39] LABS: Alanine Aminotransferase 17 U/L (16-63); Albumin Level 3.2 g/dL (3.4-5.0); Alkaline Phosphatase 105 U/L (46-116); Anion Gap 6 mmol/L (8-16); Aspartate Amino Transferase 17 U/L (15-37); Bilirubin,Total 0.2 mg/dL (0.00-1.00); Blood Urea Nitrogen 8 mg/dL (7-18); Calcium 8.3 mg/dL (8.5-10.1); Carbon Dioxide 30 mmol/L (21-32); Chloride 103 mmol/L (98-108); Estimated CRCL calculation 80 ml/min; Estimated Glomerular Filt Rate > 60; Glucose 110 mg/dL (70-99); Lipase 82 U/L (16-77); Osmolality Calculated 287 mOsm/kg (285-295); Potassium 4.2 mmol/L (3.5-5.1); Sodium 139 mmol/L (136-145); Total Protein 7.2 g/dL (6.4-8.2)
[2022-06-04 00:43] LABS: Ethanol 264 mg/dL (0-6)
--- NOTE | 2022-06-04 01:39 | PC.NURSE ---
Pt ambulated to chair s difficulty, POC to d/c home c instruction to f/u c his FMD. Call placed to pts. for pickup and ride home.
[2022-06-04 01:41] VITALS: BP 138/85; PULSE 87; RESP 18; TEMP 36.7; O2SAT 97
== END 2022-06-04 01:48 | disposition home or self-care (01) ==
PROVIDERS: Emergency Provider Internal Medicine Critical Care Medicine; PCP Nurse Practitioner Family
DX: S72.111A Displaced fracture of greater trochanter of right femur, initial encounter for closed fracture (principal); F10.129 Alcohol abuse with intoxication, unspecified; I10 Essential (primary) hypertension; E78.5 Hyperlipidemia, unspecified; F17.210 Nicotine dependence, cigarettes, uncomplicated; Y90.8 Blood alcohol level of 240 mg/100 ml or more; W19.XXXA Unspecified fall, initial encounter; Y92.89 Other specified places as the place of occurrence of the external cause
CPT/HCPCS: 36415; 70450; 73502; 80053; 80307; 83690; 84484; 85025; 85610; 93005; 99284

== ENCOUNTER 2022-06-07 13:51 | Outpatient (CLI) | payer OTHER, SELFPAY ==
--- NOTE | ~2022-06-07 | CT_ITS ---
EXAMINATION: CT hip RT wo con DATE: 06/07/2022 14:30 INDICATION: Closed avulsion fracture of greater trochanter. Right hip pain. TECHNIQUE: Computed tomography (CT) of the right hip was performed without intravenous contrast. Auto mated exposure control and iterative reconstruction technique were employed. The dose-length product was 205.48 mGy-cm. COMPARISON: Radiographs 06/04/2022 FINDINGS: Bone alignment is normal. No fracture. There is moderate right hip osteoarthritis. There is chronic heterotopic calcification adjacent to greater trochanter. There is mild lumbar spondylosis. IMPRESSION: 1. No acute fracture. 2. Moderate right hip osteoarthritis. Reviewed, dictated and finalized at location A. N REDEVELOPMENT SPECIALIST
== END 2022-06-07 13:52 | disposition home or self-care (01) ==
LOC: CHSIMG 13:53
PROVIDERS: PCP Nurse Practitioner Family; Visit Provider Nurse Practitioner Family
DX: S72.111A Displaced fracture of greater trochanter of right femur, initial encounter for closed fracture (principal); M25.551 Pain in right hip
CPT/HCPCS: 73700

== ENCOUNTER 2022-09-19 08:10 | Outpatient (CLI) | payer OTHER, SELFPAY ==
--- NOTE | ~2022-09-19 | XR_ITS ---
XR lg joint inject/asp w image INDICATION: Right hip arthritis TECHNIQUE: After discussing the procedure with the patient, including the possible risks, complicatio ns, and benefits, oral consent was obtained. A timeout was performed verifying the patient's name, d ate of , and site of injection. The skin overlying the joint was prepped and draped in usual st erile fashion. Anesthetic was administered with 1% lidocaine subcutaneously. A 22 G needle was adva nced under fluoroscopic guidance into the right hip joint. Injection of 1cc of Omnipaque 240 was per formed to verify intra-articular position of the needle. Intra-articular needle position was confirm ed. Subsequently, injectate consisting of 80 mg Depo-Medrol and 2 cc 0.5% Marcaine were instilled. The needle was removed and the entry site was cleaned and dressed. There were no immediate complicat ions.] FINDINGS: Successful fluoroscopic-guided right hip injection. IMPRESSION: 1: Successful right hip injection of anesthetic and steroid. Reviewed, dictated and finalized at location L.
== END 2022-09-19 08:11 | disposition home or self-care (01) ==
LOC: CHSIMG 08:11
PROVIDERS: PCP Nurse Practitioner Family; Visit Provider Orthopaedic Surgery
DX: M16.11 Unilateral primary osteoarthritis, right hip (principal)
CPT/HCPCS: 20610; 77002; J1030; Q9965

== ENCOUNTER 2025-01-27 07:42 | Outpatient (CLI) | payer OTHER, SELFPAY ==
--- OUTSIDE RECORDS SUMMARY | 2025-01-27 07:46 | XMS_ITS | Clinical Summary ---
Author Organization [facility] Address [address] [place] [id number] Care Team Providers Care Office Receptionist Name Role Phone Elizabeth Martinez IMPROVEMENT LEAD Primary Care Provider [phone] Allergies Active Allergy Reactions Criticality Noted Date Comments Penicillins Hives High 01/22/2024 Medications potassium chloride CR (KLOR-CON M) 20 MEQ tablet Take 1 tablet (20 mEq total) by mouth 2 (two) times daily. Active atorvastatin (LIPITOR) 40 MG tablet Take 1 tablet (40 mg total) by mouth nightly at bedtime. Active propranolol (INDERAL) 40 MG tablet Take 1 tablet (40 mg total) by mouth 2 (two) times daily. Active Social History Tobacco Use Types Packs/Day Years Used Date Smoking Tobacco: Every Day Cigarettes 0.5 41.7 Started: 1983 Smokeless Tobacco: Never Tobacco Cessation:Ready to Q uit: Not Asked; Counseling Given: Not Answered Alcohol Use Standard Drinks/Week Comments Yes 46.7 (1 standard drink = 0.6 oz pure alcohol) 6 pack daily Sex and Gender Information Value Date Recorded Sex Assigned at Not on file Legal Sex Male 11:01 AM CDT Gender Identity Not on file Sexual Orientation Not on file Last Filed Vital Signs Vital Sign Reading Time Taken Comments Blood Pressure 146/89 03/01/2024 9:48 AM CDT Pulse 64 03/01/2024 9:48 AM CDT Temperature 36.3 C (97.3 F) 03/01/2024 7:43 AM CDT Respiratory Rate 18 03/01/2024 7:43 AM CDT Oxygen Saturation 96% 03/01/2024 9:48 AM CDT Inhaled Oxygen Concentration - - Weight 74.8 kg (165 lb) 03/01/2024 7:43 AM CDT Height 175.3 cm (5' 9) 03/01/2024 7:43 AM CDT Body Mass Index 24.37 03/01/2024 7:43 AM CDT Plan of Treatment Health Maintenance Due Date Last Done Comments Colorectal Cancer Screening Colonoscopy (10 Years) 1961 Annual Physical 1964 Hepatitis C 11/07/1979 DTaP, Tdap and Td Vaccines ( 1 - Tdap) 1980 Pneumococcal Vaccine: 50+ Ye ars (1 of 2 - PCV) 1980 Lung Cancer Screening 11/07/2011 Zoster Vaccines (1 of 2) 11/07/2011 COVID-19 Vaccine (2 - 2024-2 6 season) 2025 09/13/2020 RSV Immunization or 60+ Years (1 - 1-dose 75+ series) 2036 Meningococcal B Vaccine Aged Out No l onger eligible based on patient's age to complete this topic Meningococcal Vaccine Aged Out No barry daiel eligible based on patient's age to complete this topic RSV Immunizations Under 20 Months Aged Out No longer eligible based on patient's age to complete this topic Medical Devices Implanted Type Area Manufacturer Agent Device Identifier Shelf Expiration Date Model / Serial / Lot Iol [employer] Simplicity Dcb00 - [id number] Implanted:Qty: 1 on 03/01/2024 by Tanner Álvarez MD at [facility] Lens Right: Eye [employer] 06/16/2026 DCB00 / [id number] / Tec[employer] 1-Piece Iol With [employer] Simplicity Delivery System Implanted:Qty: 1 on 02/02/2024 by Tanner Álvarez MD at [facility] Left: Eye [employer] 06/21/2026 DCB00 / [id number] / Insurance [facility] [place] [address] Care Teams Office Receptionist Relationship Specialty Start Date End Date Elizabeth Martinez FNP [address] [place] [address] PCP - General NURSE PRACTITIONER 02/02/24
[2025-01-27 07:59] LABS: Hematocrit 47.9 % (40.0-54.0); Hemoglobin 15.7 g/dL (14.0-18.0); Immature Granulocyte Percent A 0.3 % (0.0-0.0); Lymphocytes Absolute Auto 2.46 K/mm3 (1.10-4.50); Mean Corpuscular HGB Conc 32.8 g/dL (32-36); Mean Corpuscular Hemoglobin 32.0 pg (27.0-31.0); Mean Corpuscular Volume 97.8 fL (78.0-102.0); Nucleated Red Blood Cells Absolute Auto 0.00 K/mm3 (0.00-0.00); Nucleated Red Blood Cells Perc 0.0 % (0-0.0); Platelet Count Result 188 K/mm3 (150-420); Red Blood Count 4.90 M/mm3 (4.70-6.10); White Blood Count 6.7 K/mm3 (4.8-10.8)
[2025-01-27 08:45] LABS: Alanine Aminotransferase 18 U/L (6-50); Albumin Level 4.5 g/dL (3.5-5.1); Alkaline Phosphatase 86 U/L (38-126); Anion Gap 11 mmol/L (4-12); Aspartate Amino Transferase 26 U/L (17-59); Bilirubin,Total 0.7 mg/dL (0.2-1.3); Blood Urea Nitrogen 11 mg/dL (9-20); Calcium 9.5 mg/dL (8.4-10.2); Carbon Dioxide 28 mmol/L (22-30); Chloride 103 mmol/L (98-107); Cholesterol 186 mg/dL (0-200); Estimated Glomerular Filt Rate > 60; Glucose 137 mg/dL (65-110); HDL Direct 47 mg/dL; Magnesium 2.1 mg/dL (1.6-2.3); Osmolality Calculated 295 mOsm/kg (285-295); Potassium 4.6 mmol/L (3.4-5.0); Sodium 142 mmol/L (137-145); Total Protein 8.5 g/dL (6.3-8.2); Triglycerides 120 mg/dL (<150)
[2025-01-27 09:15] LABS: Prostate Specific Antigen 0.9 ng/mL (< OR = 4.0)
[2025-01-27 13:12] LABS: Hemoglobin A1C 6.3 % (<5.7)
== END 2025-01-27 07:43 | disposition home or self-care (01) ==
LOC: CHSLAB 07:44
PROVIDERS: PCP Nurse Practitioner Family; Visit Provider Nurse Practitioner Family
DX: Z13.6 Encounter for screening for cardiovascular disorders (principal); E78.5 Hyperlipidemia, unspecified; E83.42 Hypomagnesemia; Z79.899 Other long term (current) drug therapy; E55.9 Vitamin D deficiency, unspecified; I10 Essential (primary) hypertension; E87.6 Hypokalemia; Z12.5 Encounter for screening for malignant neoplasm of prostate; E11.9 Type 2 diabetes mellitus without complications
CPT/HCPCS: 36415; 80053; 80061; 82306; 83036; 83735; 84153; 85025; G0103